=== PATIENT | male | born 1950 | race Caucasian/White ===

== ENCOUNTER 2019-04-26 07:19 | Emergency (ER) | payer MEDICARE, MEDICAID ==
[~2019-04-26] VITALS: Ht 185.4 cm; Wt 93.0 kg
[~2019-04-26 07:19] MED LIST: AMOX-422 PO; HYDR-4353 PO; PRED20TA PO
[2019-04-26] MEDS ORDERED: normal saline 1000ml 1,000 ML IV ONE (07:40)
[2019-04-26] MEDS ORDERED: ketorolac trometh. 30mg/ml inj. IV ONE (07:40)
[2019-04-26] MEDS ORDERED: ondansetron/PF 4mg/2ml inj IV ONE (07:40)
[2019-04-26 08:06] LABS: CLARITY,URINE CLEAR (Clear); COLOR,URINE YELLOW (Yellow); GLUCOSE, URINE NEGATIVE (Neg); KETONES,URINE NEGATIVE (Neg); LEUKOCYTE ESTERASE ,URINE NEGATIVE (Neg); NITRITES, URINE NEGATIVE (Neg); OCCULT BLOOD,URINE NEGATIVE (Neg); PROTEIN,URINE NEGATIVE (Neg); UROBILINOGEN,URINE 0.2 E.U/dL (0.2-1.0)
[2019-04-26 08:07] LABS: UA COLLECTION TYPE CLN CATCH MIDSTREAM
--- NOTE | 2019-04-26 08:10 | NUR ---
TO CT VIA W/C
[2019-04-26 08:23] LABS: BASOPHILS % (AUTO) 0.3 % (0-1); EOSINOPHILS # (AUTO) 0.1 X10'3 (0-0.9); EOSINOPHILS % (AUTO) 1.2 % (0-6); HEMATOCRIT 41.1 % (42.0-52.0); HEMOGLOBIN 14.1 g/dl (14.0-17.9); LYMPHOCYTES # (AUTO) 1.4 X10'3 (1.1-4.8); LYMPHOCYTES % (AUTO) 16.8 % (21-51); MEAN CORPUSCULAR HEMOGLOBIN 31.6 PG (27.0-31.0); MEAN CORPUSCULAR HGB CONC 34.4 g/dL (33.0-36.5); MEAN CORPUSCULAR VOLUME 91.7 FL (78-98); MEAN PLATELET VOLUME 7.4 FL (7.4-10.4); MONOCYTES # (AUTO) 0.7 X10'3 (0-0.9); NEUTROPHILS % (AUTO) 73.7 % (42-75); PLATELET COUNT 255 X10'3 (140-440); RED BLOOD COUNT 4.48 X10'6 (4.70-6.10); RED CELL DISTRIBUTION WIDTH 13.7 % (11.5-14.5); WHITE BLOOD COUNT 8.2 X10'3 (4.5-11.0)
[2019-04-26 08:39] LABS: ALANINE AMINOTRANSFERASE 22 U/L (12-78); ALBUMIN 4.2 G/DL (3.4-5.0); ALKALINE PHOSPHATASE 106 IU/L (46-116); ANION GAP 5 (8-16); ASPARTATE AMINO TRANSFERASE 24 U/L (10-37); BILIRUBIN,TOTAL 0.5 MG/DL (0.1-1.0); BLOOD UREA NITROGEN 20 MG/DL (7-18); CALCIUM 9.2 MG/DL (8.5-10.1); CHLORIDE 95 MMOL/L (99-107); GLUCOSE 90 MG/DL (70-104); LIPASE 113 U/L (73-393); SODIUM 127 MMOL/L (135-145); TOTAL PROTEIN 8.5 G/DL (6.4-8.2); eGFR > 90 ML/MIN
[2019-04-26 08:44] LABS: POTASSIUM 4.2 MMOL/L (3.5-5.1)
--- NOTE | 2019-04-26 09:27 | NUR ---
PATIENT STATES THAT HIS ABDOMINAL PAIN IS ALMOST GONE, SLIGHT ACHES; IV FLUID FINISHED TO RIGHT FA PIV AXOX4, JAJA HAS CHRONIC LOW BACK AND NECK PAIN
[2019-04-26] MEDS ORDERED: KETO10TA2 PO (09:37)
[2019-04-26] MEDS ORDERED: gabapentin 400mg capsule PO STA (09:39)
--- NOTE | 2019-04-26 09:40 | NUR ---
DR COSME IN ROOM AND AWARE OF BP
[2019-04-26 09:56] VITALS: BP 142/98
== END 2019-04-26 10:00 | disposition home or self-care (01) ==
LOC: ER 07:20
DX: R10.32 Left lower quadrant pain (principal); G89.29 Other chronic pain; K59.00 Constipation, unspecified; J44.9 Chronic obstructive pulmonary disease, unspecified; F12.90 Cannabis use, unspecified, uncomplicated; Z60.2 Problems related to living alone; Z88.8 Allergy status to other drugs, medicaments and biological substances; Z79.2 Long term (current) use of antibiotics; Z79.899 Other long term (current) drug therapy
CPT/HCPCS: 36415; 71045; 74176; 80053; 81003; 83690; 85025; 96374; 96375; 99284; J1885; J2405; J7030

== ENCOUNTER 2019-06-30 03:00 | Emergency (ER) | payer MEDICARE, MEDICAID ==
[~2019-06-30] VITALS: Ht 185.4 cm; Wt 95.5 kg
[~2019-06-30 03:00] MED LIST changes: +KETO10TA2 PO
[2019-06-30 03:06] VITALS: BP 125/82
== END 2019-06-30 03:56 | disposition home or self-care (01) ==
LOC: ER 03:01
DX: M54.5 Low back pain (principal); G89.29 Other chronic pain; J44.9 Chronic obstructive pulmonary disease, unspecified; F12.90 Cannabis use, unspecified, uncomplicated; Z95.5 Presence of coronary angioplasty implant and graft; Z88.8 Allergy status to other drugs, medicaments and biological substances
CPT/HCPCS: 99283

== ENCOUNTER 2019-11-08 05:22 | Day surgery (SDC) | payer MEDICARE, MEDICAID ==
[2019-10-31 16:39] LABS: BASOPHILS # (AUTO) 0.1 X10'3 (0-0.2); BASOPHILS % (AUTO) 0.8 % (0-1); EOSINOPHILS # (AUTO) 0.2 X10'3 (0-0.9); EOSINOPHILS % (AUTO) 2.5 % (0-6); LYMPHOCYTES # (AUTO) 1.4 X10'3 (1.1-4.8); LYMPHOCYTES % (AUTO) 21.1 % (21-51); MEAN CORPUSCULAR HEMOGLOBIN 34.9 PG (27.0-31.0); MEAN CORPUSCULAR HGB CONC 35.2 g/dL (33.0-36.5); MEAN CORPUSCULAR VOLUME 99.1 FL (78-98); MEAN PLATELET VOLUME 7.4 FL (7.4-10.4); MONOCYTES # (AUTO) 0.7 X10'3 (0-0.9); MONOCYTES % (AUTO) 10.5 % (2-12); NEUTROPHILS # (AUTO) 4.3 X10'3 (1.8-7.7); NEUTROPHILS % (AUTO) 65.1 % (42-75); PRE OP HEMATOCRIT 28.6 % (42.0-52.0); PRE OP PLATELET COUNT 247 X10'3 (140-440); RED BLOOD COUNT 2.89 X10'6 (4.70-6.10); RED CELL DISTRIBUTION WIDTH 14.8 % (11.5-14.5)
[2019-10-31 16:41] LABS: PRE OP HEMOGLOBIN 10.1 g/dL (14.0-17.9)
[2019-10-31 16:46] LABS: ALBUMIN 3.7 G/DL (3.4-5.0); ALBUMIN/GLOBULIN RATIO 1.1 (1.1-1.5); ALKALINE PHOSPHATASE 89 IU/L (46-116); BLOOD UREA NITROGEN 21 MG/DL (7-18); CALCIUM 8.2 MG/DL (8.5-10.1); CHLORIDE 102 MMOL/L (99-107); PRE OP ALT 16 U/L (30-65); PRE OP ANION GAP 7 (8-16); PRE OP AST 24 U/L (10-37); PRE OP BILIRUB, TOTAL 0.8 MG/DL (0.0-1.0); PRE OP GLUCOSE 71 MG/DL (70-104); PRE OP POTASSIUM 3.7 MMOL/L (3.4-5.1); PRE OP SODIUM 136 MMOL/L (135-145); TOTAL CARBON DIOXIDE 27.5 MMOL/L (24-32); eGFR 75 ML/MIN
[~2019-11-08] VITALS: Ht 185.4 cm; Wt 93.9 kg
[~2019-11-08 05:22] MED LIST changes: -AMOX-422 PO; +ASPI-611 PO; +DOCU-267 PO; +FLUT1BLS4 INH; +GABA300T26 PO; -HYDR-4353 PO; -KETO10TA2 PO; -PRED20TA PO; +ringers solution, lacted 1,000 ML IV SCH
[2019-11-08 05:30] VITALS: BP 144/87
[2019-11-08] MEDS ORDERED: cefazolin/dext.iso 2gm/50ml 50 ML IV ONE (05:30)
[2019-11-08] MEDS ORDERED: famotidine 20mg tablet PO ONE (05:30)
[2019-11-08] MEDS ORDERED: albuterol 2.5 MG/3 ML nebule NEB ONE (05:30)
[2019-11-08] MEDS ORDERED: BUPIVAcaine/PF 2.5mg/ml (0.25%) 10ml vial ONE (06:39)
[2019-11-08] MEDS ORDERED: ringers solution, lacted 1,000 ML IV SCH (07:14)
[2019-11-08] MEDS ORDERED: morphine 2 MG/ML inj. syringe IV PRN (07:15)
[2019-11-08] MEDS ORDERED: proCHLORperazine 10 MG/2 ml inj IV PRN (07:15)
[2019-11-08] MEDS ORDERED: morphine 4 MG/ML inj SYRINge IV PRN (07:15)
[2019-11-08] MEDS ORDERED: ondansetron/PF 4mg/2ml inj IV PRN (07:15)
[2019-11-08] MEDS ORDERED: meperidine/PF 25mg/ml syringe IV PRN ×3 (07:15)
[2019-11-08] MEDS ORDERED: LIDOcaine 0.5% (5mg/ml) 50ml vial ONE (07:19)
[2019-11-08] MEDS ORDERED: fentaNYL/PF 50MCG/1 ML 2ML syringe ONE (07:30)
[2019-11-08] MEDS ORDERED: propofol inj 20 ML IV ONE (07:30)
[2019-11-08] MEDS ORDERED: midazolam 2 mg/2 ml injection ONE (07:30)
[2019-11-08 08:16] VITALS: BP 134/85
--- NOTE | 2019-11-08 08:16 | NUR ---
Received from OR via [facility] , accompanied by Anesthesiologist SIM and report given by Anesthesiolgist. LEFT WRIST AND ELBOW DRESSED IN SHELTON BANDAGE. VSS. DENIES PAIN- + CAP REFLL AND MOVEMENT. VSS. DENIES PAIN. Addendum: 11/08/19 at 0824 by Lloyd Greer RN, RN Amended: Links added.
[2019-11-08 08:26] VITALS: BP 132/90
[2019-11-08 08:36] VITALS: BP 132/84
--- NOTE | 2019-11-08 08:46 | NUR ---
I HAVE REVIEWED D/C INSTRUCTIONS WITH PATIENT AND FAMILY AND THEY HAVE VERBALIZED UNDERSTANDING. PATIENT D/C HOME WITH ALL BELONGINGS AND FAMILY GAVE TRANSPORT HOME. Addendum: 11/08/19 at 0852 by Lloyd Greer RN, RN Amended: Links added.
== END 2019-11-08 08:46 | disposition home or self-care (01) ==
LOC: PAS 05:22
PROVIDERS: ATTEND Orthopaedic Surgery Hand Surgery
DX: G56.02 Carpal tunnel syndrome, left upper limb (principal); G56.22 Lesion of ulnar nerve, left upper limb; M18.12 Unilateral primary osteoarthritis of first carpometacarpal joint, left hand; M25.339 Other instability, unspecified wrist; M19.90 Unspecified osteoarthritis, unspecified site; J44.9 Chronic obstructive pulmonary disease, unspecified; Z79.82 Long term (current) use of aspirin; Z79.899 Other long term (current) drug therapy; Z87.891 Personal history of nicotine dependence; Z11.59 Encounter for screening for other viral diseases
CPT/HCPCS: 36415; 64718; 64721; 80053; 82948; 85025; 93005; J2001; J2250; J2704; J3010; J3490; U0003; A4215; A6449; J7120

== ENCOUNTER 2020-01-06 05:26 | Day surgery (SDC) | payer MEDICARE, MEDICAID ==
[2019-12-31 12:06] LABS: BASOPHILS % (AUTO) 0.5 % (0-1); EOSINOPHILS # (AUTO) 0.1 X10'3 (0-0.9); EOSINOPHILS % (AUTO) 1.9 % (0-6); LYMPHOCYTES # (AUTO) 1.3 X10'3 (1.1-4.8); MEAN CORPUSCULAR HEMOGLOBIN 33.4 PG (27.0-31.0); MEAN CORPUSCULAR HGB CONC 34.4 g/dL (33.0-36.5); MEAN PLATELET VOLUME 7.4 FL (7.4-10.4); MONOCYTES # (AUTO) 0.6 X10'3 (0-0.9); MONOCYTES % (AUTO) 8.3 % (2-12); NEUTROPHILS % (AUTO) 71.3 % (42-75); PRE OP HEMATOCRIT 31.5 % (42.0-52.0); PRE OP PLATELET COUNT 264 X10'3 (140-440); RED BLOOD COUNT 3.25 X10'6 (4.70-6.10); RED CELL DISTRIBUTION WIDTH 14.9 % (11.5-14.5)
[2019-12-31 12:11] LABS: PRE OP HEMOGLOBIN 10.8 g/dL (14.0-17.9)
[2019-12-31 12:16] LABS: ALBUMIN 3.9 G/DL (3.4-5.0); ALBUMIN/GLOBULIN RATIO 1.1 (1.1-1.5); ALKALINE PHOSPHATASE 85 IU/L (46-116); BLOOD UREA NITROGEN 23 MG/DL (7-18); BUN/CREATININE RATIO 20.7 (5.4-32.0); CALCIUM 8.9 MG/DL (8.5-10.1); CHLORIDE 99 MMOL/L (99-107); CREATININE 1.11 MG/DL (0.60-1.10); PRE OP ALT 20 U/L (30-65); PRE OP ANION GAP 7 (8-16); PRE OP AST 19 U/L (10-37); PRE OP BILIRUB, TOTAL 0.9 MG/DL (0.0-1.0); PRE OP GLUCOSE 86 MG/DL (70-104); PRE OP SODIUM 133 MMOL/L (135-145); TOTAL CARBON DIOXIDE 27.1 MMOL/L (24-32); TOTAL PROTEIN 7.5 G/DL (6.4-8.2); eGFR 66 ML/MIN
[~2020-01-06] VITALS: Ht 185.4 cm; Wt 93.4 kg
[2020-01-06 05:30] VITALS: BP 138/84
[2020-01-06] MEDS ORDERED: famotidine 20mg tablet PO ONE (05:30)
[2020-01-06] MEDS ORDERED: ceFAZolin 2gm in dextrose, iso 50 ML IV ONE (05:30)
[2020-01-06] MEDS ORDERED: LIDOcaine 1% (10mg/ml) 2ml vial ONE (05:59)
[2020-01-06] MEDS ORDERED: BUPIVAcaine/PF 2.5mg/ml (0.25%) 10ml vial ONE ×2 (06:41→07:04)
[2020-01-06] MEDS ORDERED: LIDOcaine 1% 30ml preserv. free vial ONE (07:22)
[2020-01-06] MEDS ORDERED: MIDAZolam 5mg/5ml vial ONE (07:24)
[2020-01-06] MEDS ORDERED: fentaNYL/PF 50MCG/1 ML 2ML syringe ONE (07:24)
[2020-01-06] MEDS ORDERED: ketorolac trometh. 30mg/ml inj. ONE (07:27)
[2020-01-06] MEDS ORDERED: ringers solution, lacted 1,000 ML IV SCH (07:54)
[2020-01-06] MEDS ORDERED: proCHLORperazine 10 MG/2 ml inj IV PRN (07:55)
[2020-01-06] MEDS ORDERED: meperidine/PF 25mg/ml syringe IV PRN ×3 (07:55)
[2020-01-06] MEDS ORDERED: morphine 2 MG/ML inj. syringe IV PRN (07:55)
[2020-01-06] MEDS ORDERED: morphine 4 MG/ML inj SYRINge IV PRN (07:55)
[2020-01-06] MEDS ORDERED: ondansetron/PF 4mg/2ml inj IV PRN (07:55)
[2020-01-06] MEDS ORDERED: propofol inj 20 ML IV ONE (07:57)
[2020-01-06] MEDS ORDERED: LIDOcaine 2% (20mg/ml) 5ml vial ONE (07:57)
[2020-01-06 08:00] VITALS: BP 131/87
--- NOTE | 2020-01-06 08:00 | NUR ---
Received from OR via [facility], accompanied by Anesthesiologist JERMAINE and report given by Anesthesiolgist. . VSS AT THIS TIME. RIGHT ELBOW AND WRIST DRESSINGS ARE BOTH CDI, VSS. ICE APPLIED TO WRIST AND ELBOW. LOS DRIVER. + MOVEMENT OF ALL FINGERS AND LOWER ARM. Addendum: 01/06/20 at 0807 by Lloyd Greer RN, RN Amended: Links added.
[2020-01-06 08:10] VITALS: BP 130/85
[2020-01-06 08:20] VITALS: BP 128/130
[2020-01-06 08:30] VITALS: BP 130/74
--- NOTE | 2020-01-06 08:40 | NUR ---
ALL DC CRITERIA HAS BEEN MET FOR TRANSFER HOME. ALL INSTRUCTIONS COVERED AND QUESTIONS ANSWERED. Transferred via WHEELCHAIR WITH ALL Belongings . DRESSINGS ALL CDI AND VSS. Addendum: 01/06/20 at 0908 by Lloyd Greer RN, RN Amended: Links added.
--- NOTE | 2020-01-06 09:14 | NUR ---
Received from OR via [facility], accompanied by Anesthesiologist DAVON and report given by Anesthesiolgist. PATIENT WITH VSS. LEFT WRIST DRESSING IS CDI. DENIES PAIN AT THIS TIME. BG OF 121 UPON ARRIVAL TO .
== END 2020-01-06 08:40 | disposition home or self-care (01) ==
LOC: PAS 05:26
PROVIDERS: ATTEND Orthopaedic Surgery Hand Surgery
DX: G56.01 Carpal tunnel syndrome, right upper limb (principal); G56.21 Lesion of ulnar nerve, right upper limb; J44.9 Chronic obstructive pulmonary disease, unspecified; G89.4 Chronic pain syndrome; M18.12 Unilateral primary osteoarthritis of first carpometacarpal joint, left hand; F12.90 Cannabis use, unspecified, uncomplicated; Z98.890 Other specified postprocedural states; Z79.899 Other long term (current) drug therapy; Z11.59 Encounter for screening for other viral diseases; Z88.8 Allergy status to other drugs, medicaments and biological substances; Z87.891 Personal history of nicotine dependence; Z72.89 Other problems related to lifestyle
CPT/HCPCS: 36415; 64718; 64721; 80053; 82948; 85025; J1885; J2001; J2250; J2704; J3010; J3490; U0003; A4215; A6449; J7120

== ENCOUNTER 2024-08-27 15:52 | Emergency (ER) | payer MEDICARE, MEDICAID ==
[~2024-08-27] VITALS: Ht 185.4 cm; Wt 90.7 kg
[~2024-08-27 15:52] MED LIST changes: +ALBU18HF2 INH; +CETI5TAB27 PO; -DOCU-267 PO; +ERGO400C PO; -FLUT1BLS4 INH; +FOLI1TAB27 PO; -GABA300T26 PO; +HYDR200T73 PO; +PRED5TAB PO; +SILD50TA PO; -ringers solution, lacted 1,000 ML IV SCH
[2024-08-27 16:20] VITALS: BP 136/79; PULSE 84; RESP 18; TEMP 97.6; O2SAT 95
[2024-08-28] MEDS ORDERED: DOXY-135 PO (15:21)
== END 2024-08-27 19:22 | disposition left against medical advice (07) ==
LOC: ER 15:53
DX: M96.89 Other intraoperative and postprocedural complications and disorders of the musculoskeletal system (principal); Z53.21 Procedure and treatment not carried out due to patient leaving prior to being seen by health care provider

== ENCOUNTER 2024-08-28 08:39 | Emergency (ER) | payer MEDICARE, MEDICAID ==
[~2024-08-28] VITALS: Ht 185.4 cm; Wt 89.9 kg
[2024-08-28] MEDS ORDERED: iohexol 350 MG/ML 50ML vial IV ONE (10:52)
[2024-08-28] MEDS ORDERED: iohexol 350MG/ML 100ml bottle IV ONE (10:52)
[2024-08-28] MEDS: normal saline 1000ML IV soln IVB ONE (11:15)
[2024-08-28 11:26] LABS: BASOPHILS % (AUTO) 0.3 % (0-1); EOSINOPHILS % (AUTO) 0.6 % (0-6); HEMATOCRIT 29.6 % (42.0-52.0); HEMOGLOBIN 9.7 g/dl (14.0-17.9); LYMPHOCYTES # (AUTO) 0.5 X10'3 (1.1-4.8); MEAN CORPUSCULAR HEMOGLOBIN 31.5 PG (27.0-31.0); MEAN CORPUSCULAR HGB CONC 32.8 g/dL (33.0-36.5); MEAN CORPUSCULAR VOLUME 95.9 FL (78-98); MEAN PLATELET VOLUME 7.5 FL (7.4-10.4); MONOCYTES # (AUTO) 0.4 X10'3 (0-0.9); MONOCYTES % (AUTO) 6.5 % (2-12); NEUTROPHILS % (AUTO) 83.6 % (42-75); PLATELET COUNT 227 X10'3 (140-440); RED BLOOD COUNT 3.09 X10'6 (4.70-6.10); RED CELL DISTRIBUTION WIDTH 16.3 % (11.5-14.5)
[2024-08-28 11:49] LABS: GLUCOSE 83 MG/DL (70-104); POTASSIUM 3.3 MMOL/L (3.5-5.1); SODIUM 138 MMOL/L (135-145)
[2024-08-28 11:50] LABS: ALBUMIN 3.4 G/DL (3.4-5.0); ANION GAP 8 (8-16); BLOOD UREA NITROGEN 16 MG/DL (7-18); BUN/CREATININE RATIO 21.6 (10.0-20.0); CALCIUM 7.9 MG/DL (8.5-10.1); CHLORIDE 103 MMOL/L (99-107); CREATININE 0.74 MG/DL (0.60-1.10); TOTAL CARBON DIOXIDE 27.4 MMOL/L (24-32); eCRCL 103 ML/MIN; eGFR > 90 ML/MIN
[2024-08-28] MEDS ORDERED: DOXY-135 PO (15:21)
[2024-08-28] MEDS: potassium Cl 20 mEq SR tablet PO STA (15:26)
[2024-08-28 15:28] VITALS: BP 137/68; PULSE 77; RESP 14; TEMP 98.6; O2SAT 98
== END 2024-08-28 15:36 | disposition home or self-care (01) ==
LOC: ER 08:40
DX: L03.115 Cellulitis of right lower limb (principal); E87.6 Hypokalemia; J44.9 Chronic obstructive pulmonary disease, unspecified; G89.29 Other chronic pain; M54.9 Dorsalgia, unspecified; F12.90 Cannabis use, unspecified, uncomplicated; Z60.2 Problems related to living alone; Z88.5 Allergy status to narcotic agent; Z88.8 Allergy status to other drugs, medicaments and biological substances; Z79.899 Other long term (current) drug therapy; Z79.82 Long term (current) use of aspirin
CPT/HCPCS: 36415; 75635; 80048; 85025; 93971; 96360; 99285; J7030; Q9967

== ENCOUNTER 2025-04-17 15:01 | Outpatient (CLI) | payer MEDICARE, MEDICAID ==
[~2025-04-17] VITALS: Ht 180.3 cm; Wt 87.5 kg
[2025-04-17 16:11] LABS: ABG BASE EXCESS 0.8 mmol/L (-2.0-3.0); ABG HCO3 23.7 mmol/L (21.0-28.0); ABG OXYGEN SATURATION 96.5 % (94.0-98.0); ABG PCO2 (T) 32.1 mmHg (35.0-48.0); ABG PH (T) 7.486 (7.350-7.450); ABG PO2 (T) 84.7 mmHg (83.0-108.0); ALLEN'S TEST POSITIVE; FCOHb 0.7 % (0.5-1.5); FHHb 3.5 % (0.0-5.0); FIO2 21.0 mmHg/%; FMetHb 0.3 % (0.0-1.5); FO2Hb 95.5 % (94.0-98.0); MODE ROOM AIR; PATIENT TEMPERATURE 37.0; TOTAL HEMOGLOBIN 11.2 G/dl (13.5-17.5)
[2025-04-17 16:22] VITALS: PULSE 72; RESP 16; O2SAT 97
[2025-04-17] MEDS: albuterol 2.5 MG/3 ML nebule NEB ONE (16:53)
[2025-04-17 17:13] VITALS: PULSE 76; RESP 18
--- NOTE | 2025-04-18 14:19 | PROCEDURE NOTE - Respiratory ---
Procedure Note-Respiratory Providers to Copies To 1: BENJAMIN AVELAR MD Procedure Name: This is a complete pulmonary function study dated April 17, 2025. Hemoglobin measurement was done as part of the study. There was also a room air blood gas obtained from this patient on the same date. Spirometry measurements: The forced vital capacity is somewhat elevated. The FEV1 measurement is normal. The FEV1 ratio is decreased. Several of the flow rate measurements show significant reduction. After inhaled bronchodilator was administered, some of the flow rates show minimal improvement. Lung volume measurements: The total lung capacity, functional residual capacity, and residual volume measurements are all elevated. This suggests some degree of hyperinflation of the lungs with air trapping within the lungs. Lung diffusion measurement: The DLCO measurement is mildly reduced. It is noted that the KVO measurement is also reduced. The alveolar volume measurement is normal or even elevated. It is noted that the hemoglobin measurement shows slight anemia with hemoglobin at 11.2 grams/deciliter. Airway resistance measurement: The airway resistance is normal. Conclusion: This study is abnormal. There is evidence for moderate severity obstructive ventilatory defect. These findings are consistent with the p atient's diagnosis of smoking-related COPD. The patient is hyperinflated with gas trapping within the lungs. These findings together with the slight reduction in the DLCO measurement suggests an element of emphysema. This patient shows evidence of mild anemia. This patient shows very slight improvement with inhaled bronchodilator. We have no previous studies for comparison. A blood gas was drawn from this patient while the patient was breathing ambient air. The blood pH is borderline alkalotic. The pCO2 is slightly reduced. These findings indicate a very mild respiratory alkalosis. The room air PO2 is normal at 84 mmHg. STUART GASTELUM MD Apr 18, 2025 14:19
== END 2025-04-17 23:59 | disposition home or self-care (01) ==
LOC: RT 15:01
PROVIDERS: ATTEND Surgery
DX: R91.1 Solitary pulmonary nodule (principal)
CPT/HCPCS: 36600; 82803; 85018; 94060; 94727; 94729; 94760